=== PATIENT | female | born 1980 | race Native Hawaiian/Other Pacific Islander ===

== ENCOUNTER 2018-01-12 08:24 | Inpatient (IN) | payer MEDICAID ==
[2018-01-12] MEDS ORDERED: Sodium Citrate/Citric Acid 15 ml Sol PO ONE (08:50)
[2018-01-12] MEDS ORDERED: cefOXitin 2 GM in Sodium Chloride 0.9% 100 ML IVPB ONE (08:50)
[2018-01-12] MEDS ORDERED: Lactated Ringer's 1,000 ML IV SCH (09:00)
[2018-01-12 09:15] LABS: BASO # 0.1 K/uL (0.0-0.2); BASO % 0.9 % (0.0-2.0); EOS # 0.1 K/uL (0.0-0.7); EOS % 0.8 % (0.0-4.0); HEMOGLOBIN 14.1 g/dL (11.0-16.0); LYMPH # 2.1 K/uL (1.0-4.3); MEAN CELL VOLUME 91.8 fL (81.0-99.0); MEAN CORPUSCULAR HEMOGLOBIN 31.4 pg (27.0-31.0); MEAN CORPUSCULAR HGB CONC 34.2 g/dL (33.0-37.0); MEAN PLATELET VOLUME 9.4 fL (7.2-11.7); MONO # 0.7 K/uL (0.0-0.8); MONO % 8.9 % (0.0-10.0); NEUT # 5.2 K/uL (1.8-7.0); NEUT % 63.4 % (50.0-75.0); NRBC % 0.1 % (0.0-2.0); RBC 4.48 Mil/uL (3.80-5.20); RED CELL DISTRIBUTION WIDTH 13.7 % (11.5-14.5); WHITE BLOOD COUNT 8.2 K/uL (4.8-10.8)
[2018-01-12] MEDS ORDERED: Oxytocin 20 units in LR 2,000 ML IV ONE (09:16)
[2018-01-12] MEDS ORDERED: Oxytocin 10 Units/ml Inj ONE (09:17)
[2018-01-12] MEDS ORDERED: cefOXitin IV 2 gm in Saline 2 GM/50 ML BAG IVPB ONE (09:18)
[2018-01-12 09:21] VITALS: BMI 29.0
[2018-01-12 09:26] LABS: BLOOD UREA NITROGEN 10 mg/dL (7-17); CALCIUM 9.9 mg/dl (8.6-10.4); GFR AFRICAN-AMERICAN > 60; GFR NON-AFRICAN AMERICAN > 60
[2018-01-12] MEDS ORDERED: Phenylephrine 10 mg/ml Inj ONE (09:31)
[2018-01-12] MEDS ORDERED: Morphine 1 mg/ml preservative-free Inj(Duramorph) ONE (09:31)
[2018-01-12 09:57] LABS: HEPATITIS B SURFACE AG Negative (NEGATIVE)
[2018-01-12] MEDS ORDERED: Oxytocin 10 Units/ml Inj IM ONE (12:02)
--- NOTE | 2018-01-12 16:13 | HP ---
PROCEDURE DATE: HISTORY OF PRESENT ILLNESS: The patient is a 37-year-old female 4, para 3 with a due date of 01/22/2018, at 38 weeks 8 days, previous section x3, who comes in with contractions since 5 a.m. this morning. Denies any vaginal bleeding. Denies any leakage of fluid. The patient has previous section x3. PAST OBSTETRICAL HISTORY: Significant for section x3. PAST MEDICAL HISTORY: Unremarkable. SOCIAL HISTORY: She does not smoke or drink. Currently she is not taking any calcium or above medication. The patient declines tubal ligation. ALLERGIES: NONE. CURRENT MEDICATIONS: Vitafol Ultra one tablet daily. PHYSICAL EXAMINATION: VITAL SIGNS: Her blood pressure is 110/70, pulse is 72, respiratory rate is 20, temperature is 98.8. HEAD, EARS, EYES, NOSE, AND THROAT: All within normal. CHEST: Clear. CARDIAC: Reveals normal heart sounds without any murmurs. LUNGS: Clear. BREASTS: Reveal no masses. ABDOMEN: Symphyseal fundal height is 38 cm, longitudinal lie vertex. heart tones are normal. Cervix is 1 cm, 50% effaced, -2 station. ADMITTING DIAGNOSIS: Intrauterine at 38 weeks, previous section x3, in labor. PLAN: To admit the patient and perform a lower segment section. Prior to being scheduled for the surgical procedure, the patient underwent an informed consent, discussion and education session with me in the hospital lasting approximately an hour, during which time I explained in understandable terms the following, the nature and kind of disease process, the nature and kind of contemplated operation. I also explained to her the risks and potential complications of the operative procedures to include but not limited to infection, hemorrhage, deep vein thrombosis, atelectasis, pneumonia, pulmonary embolism, damage to the bladder, damage to the ureter, renal insufficiency, renal failure, wound infection, wound dehiscence, incisional hernia, keloid formation, damage to the large and small intestine, damage to the inferior vena cava and aorta requiring extensive repair, anesthesia complications, electrolyte imbalance, possibility of , fluid overload, cerebral edema, air embolism, and other complications that were discussed, but are not listed above. I also discussed with the patient the anticipated benefits and results of the surgery including a conservative estimate of the successful outcome. I discussed with the patient what the operation would not accomplish. I informed the patient of the possibility of unanticipated pathology requiring a more extensive procedure. All the questions from the patient were encouraged, welcomed and answered to her satisfaction. The patient was given the opportunity to store her own blood for use in autologous blood transfusion and she declined. Livia Pappas MD
[2018-01-12] MEDS: cefOXitin 2 GM in Sodium Chloride 0.9% 100 ML IVPB SCH (19:07)
[2018-01-12] MEDS: Oxycodone/Acetaminophen 5/325 mg Tab PO PRN (22:18)
--- NOTE | 2018-01-13 01:41 | OP ---
PROCEDURE DATE: 01/12/2018 PREOPERATIVE DIAGNOSIS: Intrauterine at 38 weeks, previous section x3, in labor. POSTOPERATIVE DIAGNOSIS: Intrauterine at 38 weeks, previous section x3, in labor. PROCEDURE: Lower segment section. FINDINGS: A live male . Apgars 9 at 1 minute and 9 at 5 minutes with normal tubes and ovaries. The uterus is adherent to the left wall, the left posterior rectus sheath. Tubes and ovaries are normal. SURGEON: Livia Pappas MD TEACHER SPECIALIST SURGEON: Umang Linder MD DESCRIPTION OF PROCEDURE: After the risks, benefits, and alternatives of the planned procedure including but not limited to infection, hemorrhage, deep vein thrombosis, atelectasis, pneumonia, pulmonary embolism, damage to the bladder, damage to the ureter, urinary insufficiency, renal failure, wound infection, wound dehiscence, incisional hernia, clot formation, damage to the large and small intestine, damage to the inferior vena cava and aorta requiring extensive repair, anesthesia complications, electrolyte imbalance, possibility of , fluid overload, cerebral edema, embolism, and other complications that were discussed but are not listed above have been explained to the patient and all her questions were answered, informed consent was obtained. The patient was taken to the operating room in a stable condition. Under suitable level of spinal anesthesia, she was prepped and draped in a sterile fashion after having been placed in a supine position. The abdomen was entered through a Pfannenstiel-type incision, carried through the subcutaneous tissues to the fascia. Fascia was opened transversely and dissected off the rectus abdominis musculature. The rectus abdominis musculature was then in the midline to remove the parietal peritoneum, which was entered sharply and incised superiorly and inferiorly. The adhesions involving the anterior wall of the uterus and the posterior rectus sheath were then resected with the help of sharp dissection. The bladder peritoneum was then incised in a curvilinear fashion and dissected off the lower uterine segment. The lower uterine segment was then entered through a curvilinear incision. Surgeon's fingers were inserted into the lower uterine segment to grasp the infant's head, which was lying in a right occipital anterior position. The head was easily delivered. The nose and mouth were suctioned free of amniotic fluid, and the remainder of the was delivered without any difficulty. Cord was doubly clamped and cut, and the baby was handed over to the pediatricians who were in attendance. Cord blood was collected with Pitocin running, placenta was manually removed. The endometrium was then cleaned free of remaining membranes and clots. The uterine incision was then closed in layers with the first layer being a running interlocking layer using #1 chromic, and the second layer being used to imbricate the first layer. Hemostasis was good. The bladder peritoneum was then reapproximated using running suture of 2-0 chromic. Peritoneal cavity was then irrigated using copious amounts of saline. The saline was evacuated. Prior to close of rectus abdominis muscles, the was applied to the raw area of the left anterior part of the uterus where the adhesions had been attached with good hemostasis. The abdomen was then closed in layers with 0 chromic to the parietal peritoneum. Recti muscles were reapproximated using interrupted sutures of 0 chromic. Fascia was reapproximated using 2 separate running sutures of 0 Vicryl to meet in the midline. Subcutaneous tissues were reapproximated using interrupted sutures of 0 plain, and the initial skin incision was reapproximated using 4-0 Vicryl in a subcuticular fashion. Estimated blood loss for the procedure was 250 mL. Pad, needle, and instrument counts were correct x2. There were no complications. Livia Pappas MD
[2018-01-13] MEDS: cefOXitin 2 GM in Sodium Chloride 0.9% 100 ML IVPB SCH ×2 (03:19→10:44)
[2018-01-13] MEDS: Oxycodone/Acetaminophen 5/325 mg Tab PO PRN ×3 (05:59→20:06)
[2018-01-13] MEDS ORDERED: Enoxaparin 40 mg Syringe SC ONE (08:00)
[2018-01-13 08:40] LABS: MEAN CELL VOLUME 91.1 fL (81.0-99.0); MEAN CORPUSCULAR HEMOGLOBIN 31.3 pg (27.0-31.0); MEAN CORPUSCULAR HGB CONC 34.4 g/dL (33.0-37.0); RBC 3.5 Mil/uL (3.80-5.20); RED CELL DISTRIBUTION WIDTH 13.6 % (11.5-14.5)
[2018-01-13 08:47] LABS: HEMOGLOBIN 10.9 g/dL (11.0-16.0); WHITE BLOOD COUNT 14.3 K/uL (4.8-10.8)
[2018-01-13] MEDS: Simethicone 80 mg Chewtab PO SCH ×4 (10:46→21:43)
[2018-01-13] MEDS: Enoxaparin 40 mg Syringe SC SCH (17:45)
[2018-01-14] MEDS: Oxycodone/Acetaminophen 5/325 mg Tab PO PRN ×2 (07:37→15:34)
[2018-01-14] MEDS: Simethicone 80 mg Chewtab PO SCH ×4 (09:41→21:57)
--- NOTE | 2018-01-14 17:36 | PN ---
DATE: 01/14/2018 SUBJECTIVE: The patient has no complaints. OBJECTIVE: VITAL SIGNS: Stable. She is afebrile. ABDOMEN: Soft. Bowel sounds are normal. Incision is clean and intact. EXTREMITIES: Nontender. No evidence of DVT. : Lochia is scant. BREASTS: Reveal no engorgement. ASSESSMENT: The patient is status post section day #2. PLAN: To continue ambulating and anticipate discharge tomorrow morning on Keflex 500 mg q.i.d. x7 days and Tylenol No. 3 two tablets every 4 hours p.r.n. for a total of 20 tablets. Will be followed up in the office in 1 week. Livia Pappas MD
[2018-01-15] MEDS: Oxycodone/Acetaminophen 5/325 mg Tab PO PRN ×2 (04:48→09:18)
[2018-01-15 08:04] VITALS: BP 130/81; RESP 18; O2SAT 98
[2018-01-15] MEDS: Simethicone 80 mg Chewtab PO SCH (09:18)
[2018-01-15] MEDS: Enoxaparin 40 mg Syringe SC SCH (09:18)
[2018-01-15 15:49] VITALS: PULSE 90; TEMP 97.5
== END 2018-01-15 11:40 | disposition home or self-care (01) | DRG 371 ==
LOC: C.EROB 08:24 → C.4D 08:41 → C.4M 15:00
PROVIDERS: ADMIT Obstetrics & Gynecology Reproductive Endocrinology; ATTEND Obstetrics & Gynecology Reproductive Endocrinology
PROC: 10D00Z1 Extraction of Products of Conception, Low, Open Approach (ICD-10-PCS; principal; 2018-01-12)
DX: O34.219 Maternal care for unspecified type scar from previous cesarean delivery (principal); Z3A.38 38 weeks gestation of pregnancy; Z37.0 Single live birth